=== PATIENT | female | born 1930 | race Caucasian/White ===

== ENCOUNTER 2017-01-01 01:07 | Emergency (ER) | payer MEDICARE, BC ==
[2017-01-01] MEDS ORDERED: ONDANSETRON 4 MG/2 ML VIAL IVP STA (01:26)
--- NOTE | 2017-01-01 01:52 | ED ---
Abdominal Pain HPI - General Chief Complaint: Abdominal Pain Stated Complaint: nausea Time Seen by Provider: 01/01/17 01:25 Source: patient, family Mode of arrival: wheelchair Limitations: no limitations - History of Present Illness Initial Comments: this patient is an 86-year-old woman accompanied by her daughter who complains of having nausea and vomiting. The patient states that the symptoms started around 2220, and occurred while she was lying down in bed. Patient states that she started feeling intensely nauseated and then had about 5 or 6 episodes of vomiting. She also was feeling chills at that time. She states that she has not had abdominal pain. She does not have any change in bowel movements. She has had no change in urination. She denies other symptoms. MD Complaint: other (nausea and vomiting.) Onset/Timin -: hour(s) Associated Symptoms: nausea, vomiting, chills - Related Data Home Medications Medication Instructions Recorded Confirmed Aspirin 81 mg PO DAILY 01/01/17 01/01/17 Darbepoetin Hever [Aranesp] 200 mcg IJ PRN 01/01/17 Doxazosin [Cardura] 2 mg PO DAILY 01/01/17 01/01/17 Metoprolol Succinate [Toprol XL] 200 mg PO DAILY 01/01/17 01/01/17 Omeprazole Magnesium [Prilosec OTC] 20 mg PO 01/01/17 Polyethylene Glycol 3350 [Miralax] pack PO PRN 01/01/17 Ubidecarenone [Co Q-10] 100 mg PO DAILY 01/01/17 01/01/17 amLODIPine [Norvasc] 5 mg PO HS 01/01/17 01/01/17 Previous Rx's Medication Instructions Recorded Ondansetron Odt [Zofran ODT] 4 mg PO Q8HR PRN #10 tab 01/01/17 Allergies Allergy/AdvReac Type Severity Reaction Status Date / Time iodine Allergy Anaphylaxis Verified 01/01/17 01:13 scopolamine Allergy Hallucinati Verified 01/01/17 01:13 ons Review of Systems ROS Statement: Those systems with pertinent positive or pertinent negative responses have been documented in the HPI. ROS Other: All systems not noted in ROS Statement are negative. Constitutional: Reports: chills. Denies: fever, weakness Respiratory: Denies: cough, dyspnea Cardiovascular: Denies: chest pain, orthopnea, edema, syncope Gastrointestinal: Reports: nausea, vomiting. Denies: abdominal pain, diarrhea, constipation, hematemesis Genitourinary: Denies: dysuria, hematuria Musculoskeletal: Denies: back pain Skin: Denies: rash Neurological: Denies: headache Past Medical History Past Medical History: Hypertension Additional Past Medical History / Comment(s): heart mumur. left hip fracture. History of Any Multi-Drug Resistant Organisms: None Reported Past Surgical History: Appendectomy, Hysterectomy, Tonsillectomy Additional Past Surgical History / Comment(s): bilateral mastectomy. fractured left kneecap. Past Psychological History: No Psychological Hx Reported Smoking Status: Former smoker Past Alcohol Use History: None Reported Past Drug Use History: None Reported General Exam Limitations: no limitations General appearance: alert, in no apparent distress Head exam: Present: atraumatic, normocephalic Eye exam: Present: normal appearance. Absent: scleral icterus, conjunctival injection ENT exam: Present: mucous membranes dry Neck exam: Present: normal inspection Respiratory exam: Present: normal lung sounds bilaterally. Absent: respiratory distress, wheezes, rales, rhonchi, stridor Cardiovascular Exam: Present: regular rate, normal rhythm, systolic murmur ( grade 3/6), diastolic murmur. Absent: normal heart sounds, rubs, gallop GI/Abdominal exam: Present: soft. Absent: distended, tenderness, guarding, rebound, rigid, mass, pulsatile mass Extremities exam: Present: normal inspection, normal capillary refill. Absent: pedal edema, calf tenderness Back exam: Present: normal inspection. Absent: CVA tenderness (R), CVA tenderness (L) Neurological exam: Present: alert Skin exam: Present: warm, dry, intact, normal color. Absent: rash Course Vital Signs 01/01/17 01/01/17 01/01/17 01:09 02:06 03:00 Temperature 100.7 F H 100.4 F H Pulse Rate 80 80 77 Respiratory 24 18 18 Rate Blood Pressure 199/84 168/86 147/70 O2 Sat by Pulse 96 98 Oximetry Medical Decision Making - Medical Decision Making I reviewed the study results with the patient and her daughter. They state that the issue related to anemia and blood counts is chronic, and that she always runs just at or slightly below 10. The patient states that her symptoms have resolved and she wants to go home. Discussed appropriate follow-up and also return parameters. All questions answered. - Lab Data Result diagrams: 01/01/17 01:53 01/01/17 01:53 Lab Results 01/01/17 01/01/17 01/01/17 Range/Units 01:53 01:53 03:28 WBC 3.3 L (3.8-10.6) k/uL RBC 3.46 L (3.80-5.40) m/uL Hgb 9.7 L (11.4-16.0) gm/dL Hct 32.1 L (34.0-46.0) % MCV 92.6 (80.0-100.0) fL MCH 27.9 (25.0-35.0) pg MCHC 30.1 L (31.0-37.0) g/dL RDW 24.5 H (11.5-15.5) % Plt Count 276 (150-450) k/uL Neutrophils % (Manual) 76 % Band Neutrophils % 4 % Lymphocytes % (Manual) 6 % Monocytes % (Manual) 14 % Neutrophils # (Manual) 2.60 (1.3-7.7) k/uL Lymphocytes # (Manual) 0.20 L (1.0-4.8) k/uL Monocytes # (Manual) 0.46 (0-1.0) k/uL Nucleated RBCs 2 H (0-0) /100 WBC Manual Slide Review Performed Large Platelets Present Hypochromasia Moderate Anisocytosis Marked Microcytosis Slight Macrocytosis Slight Fragmented RBCs Present Sodium 135 L (137-145) mmol/L Potassium 4.4 (3.5-5.1) mmol/L Chloride 101 (98-107) mmol/L Carbon Dioxide 25 (22-30) mmol/L Anion Gap 9 mmol/L BUN 17 (7-17) mg/dL Creatinine 0.80 (0.52-1.04) mg/dL Est GFR (MDRD) Af Amer >60 (>60 ml/min/1.73 sqM) Est GFR (MDRD) Non-Af >60 (>60 ml/min/1.73 sqM) Glucose 121 H (74-99) mg/dL Calcium 9.1 (8.4-10.2) mg/dL Total Bilirubin 0.9 (0.2-1.3) mg/dL AST 25 (14-36) U/L ALT 41 (9-52) U/L Alkaline Phosphatase 95 (38-126) U/L Total Protein 6.6 (6.3-8.2) g/dL Albumin 3.7 (3.5-5.0) g/dL Amylase 45 (30-110) U/L Lipase 119 (23-300) U/L Urine Color Yellow Urine Appearance Clear (Clear) Urine pH 6.0 (5.0-8.0) Ur Specific Aston 1.013 (1.001-1.035) Urine Protein Trace H (Negative) Urine Glucose (UA) Negative (Negative) Urine Ketones Negative (Negative) Urine Blood Negative (Negative) Urine Nitrite Negative (Negative) Urine Bilirubin Negative (Negative) Urine Urobilinogen <2.0 (<2.0) mg/dL Ur Leukocyte Esterase Negative (Negative) Disposition Clinical Impression: Vomiting alone, Anemia Disposition: HOME SELF-CARE Condition: Good Instructions: Acute Nausea and Vomiting (ED) Prescriptions: Ondansetron Odt [Zofran ODT] 4 mg PO Q8HR PRN #10 tab PRN Reason: Nausea Referrals: Nonstaff,Physician [REFERRING] - 1-2 days
[2017-01-01 02:08] VITALS: RESP 18
[2017-01-01] MEDS ORDERED: ACETAMINOPHEN TAB 325 MG TAB PO STA (02:09)
[2017-01-01 02:34] LABS: ALT 41 U/L (9-52); AST 25 U/L (14-36); Alkaline Phosphatase 95 U/L (38-126); Amylase 45 U/L (30-110); Anion Gap 9 mmol/L; Blood Urea Nitrogen 17 mg/dL (7-17); Calcium 9.1 mg/dL (8.4-10.2); Carbon Dioxide 25 mmol/L (22-30); Chloride 101 mmol/L (98-107); Glucose 121 mg/dL (74-99); Non-African American GFR(MDRD) >60 (>60 ml/min/1.73 sqM); Potassium 4.4 mmol/L (3.5-5.1); Sodium 135 mmol/L (137-145); Total Bilirubin 0.9 mg/dL (0.2-1.3); Total Protein 6.6 g/dL (6.3-8.2)
[2017-01-01 02:37] LABS: Anisocytosis Marked; CHCM 31.1; HCT 32.1 % (34.0-46.0); HDW 3.33; HGB 9.7 gm/dL (11.4-16.0); Hypochromasia Moderate; Immature Gran Flag Slight; Large Platelets Flag Marked; MCH 27.9 pg (25.0-35.0); MCHC 30.1 g/dL (31.0-37.0); MCV 92.6 fL (80.0-100.0); Macrocytosis Slight; Mean Platelet Volume 11.6; Microcytosis Slight; RBC 3.46 m/uL (3.80-5.40); RDW 24.5 % (11.5-15.5); WBC (Perox) 4.43
[2017-01-01 02:51] LABS: Add Differential Manual Differential
[2017-01-01 02:55] LABS: Band Neutrophils % 4 %; Large Platelets Present; Manual Review Performed; Nucleated Red Blood Cells 2 /100 WBC (0-0); Total Cells Counted 200; WBC 3.3 k/uL (3.8-10.6)
[2017-01-01 03:35] LABS: Appearance,Urine Clear (Clear); Bilirubin,Urine Negative (Negative); Glucose,Urine (UA) Negative (Negative); Ketones,Urine Negative (Negative); Leukocyte Esterase,Urine Negative (Negative); Nitrite,Urine Negative (Negative); Protein,Urine Trace (Negative); Specific Gravity,Urine 1.013 (1.001-1.035); UA Billing (MACRO vs. MICRO) CHEM; Urobilinogen,Urine <2.0 mg/dL (<2.0)
[2017-01-01 04:49] VITALS: BP 132/66; PULSE 68; TEMP 99.5
== END 2017-01-01 04:48 | disposition home or self-care (01) ==
LOC: EC 01:07
DX: R11.10 Vomiting, unspecified (principal); D64.9 Anemia, unspecified; I10 Essential (primary) hypertension; Z87.891 Personal history of nicotine dependence; Z90.49 Acquired absence of other specified parts of digestive tract; Z91.048 Other nonmedicinal substance allergy status; Z91.018 Allergy to other foods; Z79.82 Long term (current) use of aspirin; Z79.899 Other long term (current) drug therapy
CPT/HCPCS: 36415; 80053; 82150; 83690; 85025; 81003; 99284; 96374; J2405

== ENCOUNTER 2017-01-01 21:51 | Inpatient (IN) | payer MEDICARE, BC ==
[2017-01-01] MEDS ORDERED: SODIUM CHLORIDE 0.9% 1,000 ML IV STA (22:12)
[2017-01-01] MEDS ORDERED: MORPHINE SULFATE 10 MG/ML SYRINGE IV STA (22:12)
[2017-01-01] MEDS ORDERED: ONDANSETRON 4 MG/2 ML VIAL IVP STA (22:12)
--- NOTE | 2017-01-01 22:19 | ED ---
General Adult HPI - General Chief complaint: Abdominal Pain Stated complaint: Vomiting/Body Ache Time Seen by Provider: 01/01/17 22:04 Source: patient, family, RN notes reviewed Mode of arrival: ambulatory Limitations: no limitations - History of Present Illness Initial comments: 86-year-old female presents for evaluation of abdominal pain nausea vomiting diarrhea. Patient was seen in the emergency department earlier today with chief complaint of nausea vomiting and constipation. Patient was feeling much better at the time of discharge. She went home, slept most of the day. Earlier this evening she was having difficulty having a bowel movement, she was given 2 glycerin suppositories, at that time she had several large hard bowel movements followed by intense abdominal pain and 10 episodes of nausea and vomiting. Patient is in severe pain at the time my evaluation. She states the pain is all over her abdomen. She is unable to localize it. 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 Patient also complains of subjective fever and chills. No chest pain or shortness of breath. - Related Data Home Medications Medication Instructions Recorded Confirmed Aspirin 81 mg PO QAM 01/01/17 01/01/17 Cholecalciferol [Vitamin D3] 1,000 unit PO QAM 01/01/17 01/01/17 Co Q-10 50 mg PO QAM 01/01/17 01/01/17 Darbepoetin Hever [Aranesp] 200 mcg IJ Q14D PRN 01/01/17 01/01/17 Doxazosin [Cardura] 2 mg PO HS 01/01/17 01/01/17 Metoprolol Succinate [Toprol XL] 200 mg PO QAM 01/01/17 01/01/17 Omeprazole Magnesium [Prilosec OTC] 20 mg PO QAM 01/01/17 01/01/17 Polyethylene Glycol 3350 [Miralax] 17 gm PO DAILY PRN 01/01/17 01/01/17 amLODIPine [Norvasc] 5 mg PO HS 01/01/17 01/01/17 Allergies Allergy/AdvReac Type Severity Reaction Status Date / Time iodine Allergy Anaphylaxis Verified 01/01/17 23:00 scopolamine Allergy Hallucinati Verified 01/01/17 23:00 ons Review of Systems ROS Statement: Those systems with pertinent positive or pertinent negative responses have been documented in the HPI. ROS Other: All systems not noted in ROS Statement are negative. Past Medical History Past Medical History: Hypertension Additional Past Medical History / Comment(s): heart mumur. left hip fracture. History of Any Multi-Drug Resistant Organisms: None Reported Past Surgical History: Appendectomy, Hysterectomy, Tonsillectomy Additional Past Surgical History / Comment(s): bilateral mastectomy. fractured left kneecap. Past Psychological History: No Psychological Hx Reported Smoking Status: Former smoker Past Alcohol Use History: None Reported Past Drug Use History: None Reported General Exam Limitations: no limitations General appearance: alert, in distress Head exam: Present: atraumatic, normocephalic Eye exam: Present: normal appearance, PERRL ENT exam: Present: mucous membranes dry Neck exam: Present: normal inspection. Absent: tenderness, meningismus Respiratory exam: Present: normal lung sounds bilaterally. Absent: respiratory distress Cardiovascular Exam: Present: regular rate, normal rhythm GI/Abdominal exam: Present: soft, tenderness (Minimal tenderness throughout the abdomen). Absent: distended, guarding, rebound Rectal exam: Present: normal inspection, normal rectal tone. Absent: fecal impaction Extremities exam: Present: normal inspection, normal capillary refill, other ( Bilateral femoral pulses 2+). Absent: pedal edema Neurological exam: Present: alert, oriented X3. Absent: motor sensory deficit Psychiatric exam: Present: normal affect, normal mood Skin exam: Present: warm, dry. Absent: intact, cyanosis, diaphoretic Course Vital Signs 01/01/17 01/01/17 21:56 23:25 Temperature 97 F L Pulse Rate 67 78 Respiratory 24 18 Rate Blood Pressure 224/93 185/79 O2 Sat by Pulse 97 99 Oximetry EKG Findings - EKG Comments: EKG Findings:: EKG shows normal sinus rhythm, right bundle branch block, ventricular rate 74, MS interval 184, QRS duration 148, QTC 521 Medical Decision Making - Medical Decision Making 86-year-old female presenting with abdominal pain, nausea vomiting and diarrhea. Laboratory studies are obtained, there is leukopenia with a white blood cell count 1.9, this may be secondary to infection. Hemoglobin stable at 10.1. Creatinine 1.0 which is normal. Troponin is negative. Electrolytes within normal limits. X-ray abdomen is obtained, shows no acute intra- abdominal process, no obstruction, no free air. Patient does have significant pain, there is only minimal tenderness, there is concern for mesenteric ischemia , CT angiography of the abdomen and pelvis is obtained, this is negative for occlusion or significant stenosis, also no additional intra-abdominal process to explain the patient's symptoms. I reevaluation, patient does have continued abdominal pain, she is given additional dose of IV pain medication. She will be admitted for further pain control and reevaluation. Diagnosis: Intractable abdominal pain, nausea vomiting diarrhea - Lab Data Result diagrams: 01/01/17 22:49 01/01/17 22:49 Lab Results 01/01/17 01/01/17 01/01/17 Range/Units 22:49 22:49 22:49 WBC 1.9 L* (3.8-10.6) k/uL RBC 3.65 L (3.80-5.40) m/uL Hgb 10.1 L (11.4-16.0) gm/dL Hct 33.6 L (34.0-46.0) % MCV 92.1 (80.0-100.0) fL MCH 27.6 (25.0-35.0) pg MCHC 30.0 L (31.0-37.0) g/dL RDW 24.6 H (11.5-15.5) % Plt Count 287 (150-450) k/uL Neutrophils % (Manual) 28 % Band Neutrophils % 16 % Lymphocytes % (Manual) 35 % Monocytes % (Manual) 22 % Neutrophils # (Manual) 0.80 L (1.3-7.7) k/uL Lymphocytes # (Manual) 0.67 L (1.0-4.8) k/uL Monocytes # (Manual) 0.42 (0-1.0) k/uL Nucleated RBCs 0 (0-0) /100 WBC Manual Slide Review Performed Polychromasia Present Hypochromasia Moderate Poikilocytosis Slight Anisocytosis Marked Microcytosis Slight Macrocytosis Slight Ovalocytes Present Fragmented RBCs Present APTT (22.0-30.0) sec Sodium 136 L (137-145) mmol/L Potassium 4.4 (3.5-5.1) mmol/L Chloride 100 (98-107) mmol/L Carbon Dioxide 26 (22-30) mmol/L Anion Gap 10 mmol/L BUN 21 H (7-17) mg/dL Creatinine 1.00 (0.52-1.04) mg/dL Est GFR (MDRD) Af Amer >60 (>60 ml/min/1.73 sqM) Est GFR (MDRD) Non-Af 52 (>60 ml/min/1.73 sqM) Glucose 136 H (74-99) mg/dL Plasma Lactic Acid Farzad (0.7-2.0) mmol/L Calcium 9.2 (8.4-10.2) mg/dL Total Bilirubin 1.3 (0.2-1.3) mg/dL AST 30 (14-36) U/L ALT 45 (9-52) U/L Alkaline Phosphatase 148 H (38-126) U/L Total Creatine Kinase 30 (30-135) U/L CK-MB (CK-2) 0.8 (0.0-2.4) ng/mL CK-MB (CK-2) Rel Index 2.7 Troponin I (0.000-0.034) ng/mL Total Protein 6.8 (6.3-8.2) g/dL Albumin 3.8 (3.5-5.0) g/dL Amylase 183 H (30-110) U/L Lipase 123 (23-300) U/L Blood Type Blood Type Recheck Antibody Screen Spec Expiration Date 01/01/17 01/01/17 01/01/17 Range/Units 22:49 22:49 22:49 WBC (3.8-10.6) k/uL RBC (3.80-5.40) m/uL Hgb (11.4-16.0) gm/dL Hct (34.0-46.0) % MCV (80.0-100.0) fL MCH (25.0-35.0) pg MCHC (31.0-37.0) g/dL RDW (11.5-15.5) % Plt Count (150-450) k/uL Neutrophils % (Manual) % Band Neutrophils % % Lymphocytes % (Manual) % Monocytes % (Manual) % Neutrophils # (Manual) (1.3-7.7) k/uL Lymphocytes # (Manual) (1.0-4.8) k/uL Monocytes # (Manual) (0-1.0) k/uL Nucleated RBCs (0-0) /100 WBC Manual Slide Review Polychromasia Hypochromasia Poikilocytosis Anisocytosis Microcytosis Macrocytosis Ovalocytes Fragmented RBCs APTT 21.5 L (22.0-30.0) sec Sodium (137-145) mmol/L Potassium (3.5-5.1) mmol/L Chloride (98-107) mmol/L Carbon Dioxide (22-30) mmol/L Anion Gap mmol/L BUN (7-17) mg/dL Creatinine (0.52-1.04) mg/dL Est GFR (MDRD) Af Amer (>60 ml/min/1.73 sqM) Est GFR (MDRD) Non-Af (>60 ml/min/1.73 sqM) Glucose (74-99) mg/dL Plasma Lactic Acid Farzad 1.8 (0.7-2.0) mmol/L Calcium (8.4-10.2) mg/dL Total Bilirubin (0.2-1.3) mg/dL AST (14-36) U/L ALT (9-52) U/L Alkaline Phosphatase (38-126) U/L Total Creatine Kinase (30-135) U/L CK-MB (CK-2) (0.0-2.4) ng/mL CK-MB (CK-2) Rel Index Troponin I (0.000-0.034) ng/mL Total Protein (6.3-8.2) g/dL Albumin (3.5-5.0) g/dL Amylase (30-110) U/L Lipase (23-300) U/L Blood Type A Positive Blood Type Recheck CABO Indicated Antibody Screen NEGATIVE Spec Expiration Date 01/04/2017234801/01/17 Range/Units 22:59 WBC (3.8-10.6) k/uL RBC (3.80-5.40) m/uL Hgb (11.4-16.0) gm/dL Hct (34.0-46.0) % MCV (80.0-100.0) fL MCH (25.0-35.0) pg MCHC (31.0-37.0) g/dL RDW (11.5-15.5) % Plt Count (150-450) k/uL Neutrophils % (Manual) % Band Neutrophils % % Lymphocytes % (Manual) % Monocytes % (Manual) % Neutrophils # (Manual) (1.3-7.7) k/uL Lymphocytes # (Manual) (1.0-4.8) k/uL Monocytes # (Manual) (0-1.0) k/uL Nucleated RBCs (0-0) /100 WBC Manual Slide Review Polychromasia Hypochromasia Poikilocytosis Anisocytosis Microcytosis Macrocytosis Ovalocytes Fragmented RBCs APTT (22.0-30.0) sec Sodium (137-145) mmol/L Potassium (3.5-5.1) mmol/L Chloride (98-107) mmol/L Carbon Dioxide (22-30) mmol/L Anion Gap mmol/L BUN (7-17) mg/dL Creatinine (0.52-1.04) mg/dL Est GFR (MDRD) Af Amer (>60 ml/min/1.73 sqM) Est GFR (MDRD) Non-Af (>60 ml/min/1.73 sqM) Glucose (74-99) mg/dL Plasma Lactic Acid Farzad (0.7-2.0) mmol/L Calcium (8.4-10.2) mg/dL Total Bilirubin (0.2-1.3) mg/dL AST (14-36) U/L ALT (9-52) U/L Alkaline Phosphatase (38-126) U/L Total Creatine Kinase (30-135) U/L CK-MB (CK-2) (0.0-2.4) ng/mL CK-MB (CK-2) Rel Index Troponin I <0.012 (0.000-0.034) ng/mL Total Protein (6.3-8.2) g/dL Albumin (3.5-5.0) g/dL Amylase (30-110) U/L Lipase (23-300) U/L Blood Type Blood Type Recheck Antibody Screen Spec Expiration Date Disposition Clinical Impression: Intractable abdominal pain, Nausea vomiting and diarrhea Disposition: ADMITTED IP TO THIS [facility] Condition: Stable Referrals: Nonstaff,Physician [Primary Care Provider] - 1-2 days Decision to Admit Reason: Admit from EC Decision Date: 01/02/17 Decision Time: 01:05
[2017-01-01 23:03] LABS: Anisocytosis Marked; Aty Lym Flag Moderate; CH 28.8; CHCM 31.1; HCT 33.6 % (34.0-46.0); HGB 10.1 gm/dL (11.4-16.0); Hypochromasia Moderate; Immature Gran Flag Moderate; Large Platelets Flag Moderate; MCH 27.6 pg (25.0-35.0); MCV 92.1 fL (80.0-100.0); Macrocytosis Slight; Mean Platelet Volume 11.3; Microcytosis Slight; Poikilocytosis Slight; RBC 3.65 m/uL (3.80-5.40); RDW 24.6 % (11.5-15.5)
[2017-01-01 23:05] LABS: WBC 1.9 k/uL (3.8-10.6)
[2017-01-01 23:06] LABS: ALT 45 U/L (9-52); AST 30 U/L (14-36); Alkaline Phosphatase 148 U/L (38-126); Amylase 183 U/L (30-110); Anion Gap 10 mmol/L; Blood Urea Nitrogen 21 mg/dL (7-17); Calcium 9.2 mg/dL (8.4-10.2); Carbon Dioxide 26 mmol/L (22-30); Chloride 100 mmol/L (98-107); Glucose 136 mg/dL (74-99); Non-African American GFR(MDRD) 52 (>60 ml/min/1.73 sqM); Potassium 4.4 mmol/L (3.5-5.1); Sodium 136 mmol/L (137-145); Total Bilirubin 1.3 mg/dL (0.2-1.3); Total Protein 6.8 g/dL (6.3-8.2)
--- NOTE | 2017-01-01 23:11 | XR ---
EXAMINATION TYPE: XR KUB DATE OF EXAM: 01/01/2017 COMPARISON: NONE HISTORY: Abdominal pain TECHNIQUE: Single view FINDINGS: There is no sign of intestinal obstruction or pneumoperitoneum. Fecal pattern is normal. Th ere is vascular calcification. There is a right hip nailing. There is no sign of a mass. IMPRESSION: Nonacute abdomen.
[2017-01-01 23:18] LABS: Add Differential Manual Differential
[2017-01-01] MEDS ORDERED: MORPHINE SULFATE 10 MG/ML SYRINGE IVP STA (23:25)
[2017-01-01] MEDS ORDERED: RX INFO: IV CONTRAST WAS GIVEN 1 EACH MISC MISCELLANE PRN (23:25)
[2017-01-01 23:26] LABS: Creatine Kinase MB 0.8 ng/mL (0.0-2.4)
[2017-01-01 23:29] LABS: Band Neutrophils % 16 %; Manual Review Performed; Nucleated Red Blood Cells 0 /100 WBC (0-0); Ovalocytes Present; Total Cells Counted 200
[2017-01-01 23:30] LABS: Polychromasia Present
[2017-01-01] MEDS ORDERED: methylPREDNISolone SOD SUCCI 125 MG/2 ML VIAL IV STA (23:34)
[2017-01-01] MEDS ORDERED: diphenhydrAMINE 50 MG/ML 1 ML VIAL IVP STA (23:34)
[2017-01-01] MEDS ORDERED: FAMOTIDINE 20 MG/2 ML VIAL IV STA (23:34)
[2017-01-01] MEDS ORDERED: SODIUM CHLORIDE 0.9% 500 ML IV ONE (23:40)
--- NOTE | 2017-01-02 00:28 | CT ---
EXAMINATION TYPE: CT angio abdomen pelvis DATE OF EXAM: 01/02/2017 HISTORY: ABD PAIN CT DLP: 652.20mGycm Automated Exposure Control for Dose Reduction was Utilized. CONTRAST: CT scan of the abdomen and pelvis is performed with IV Contrast, patient injected with 80ML mL of Vis ipaque 320. There are 3-D post processed images. COMPARISON: None. FINDINGS: There is patchy linear density at the lung bases. There is mild pleural thickening at the right lung base. Heart is enlarged. Abdominal aorta is atheromatous. There is no evidence of aortic aneurysm or dissection. The lumen is difficult to evaluate because of extensive calcification in the iliac arteri es. There is approximate 50% stenosis at the origin of the celiac artery. There is patency of the sup erior mesenteric artery. There is bilateral renal artery patency. There is high attenuation in the dependent gallbladder consistent with multiple small gallstones. Skyler e ducts are not dilated. There is no hydronephrosis. There is no ascites. There is bilateral arterial flow in the internal and external iliac arteries and the femoral arteries. There is a 1 cm hypodense nonspecific area in the anterior left lobe of the liver. There is patency of the inferior mesenteric artery. There is a tiny amount of free fluid in the cul-de-sac. CONCLUSION: Atherosclerotic vascular disease. I do not see evidence for intestinal ischemia. There is no definite evidence of intestinal wall thickening or intestinal ileus or intestinal wall edema to suggest ische silvina. There is probably up to 50% stenosis of the common iliac arteries due to atherosclerotic plaque. There is fairly symmetric contrast density in the femoral arteries and I do not see evidence for asy mmetric stenosis. Minimal free fluid in the pelvis of uncertain significance.
[2017-01-02] MEDS ORDERED: MORPHINE SULFATE 10 MG/ML SYRINGE IV PRN (00:59)
[2017-01-02] MEDS ORDERED: NALOXONE 0.4 MG/ML 1 ML VIAL IV PRN (00:59)
[2017-01-02] MEDS ORDERED: ACETAMINOPHEN TAB 325 MG TAB PO PRN (00:59)
[2017-01-02] MEDS ORDERED: DOCUSATE 100 MG CAP PO PRN (00:59)
[2017-01-02] MEDS ORDERED: POLYETHYLENE GLYCOL 3350 17 GM POWD.PACK PO PRN (01:01)
[2017-01-02] MEDS ORDERED: amLODIPine 5 MG TAB PO STA (01:35)
[2017-01-02] MEDS ORDERED: ASPIRIN 81 MG PO SCH (09:00)
[2017-01-02] MEDS: FAMOTIDINE 20 MG TAB PO SCH ×2 (09:19→21:23)
[2017-01-02] MEDS: PANTOPRAZOLE 40 MG TABLET PO SCH (09:19)
[2017-01-02] MEDS: METOPROLOL SUCCINATE (ER) 100 MG TAB.ER.24H PO SCH (09:19)
[2017-01-02 14:40] LABS: Appearance,Urine Clear (Clear); Bilirubin,Urine Negative (Negative); Glucose,Urine (UA) Negative (Negative); Ketones,Urine Negative (Negative); Leukocyte Esterase,Urine Negative (Negative); Mucus,Urine Rare /hpf; Nitrite,Urine Negative (Negative); PH, Urine 5.5 (5.0-8.0); Particle Count 2454; Protein,Urine 1+ (Negative); RBC,Urine <1 /hpf (0-5); Specific Gravity,Urine 1.038 (1.001-1.035); Squamous Epithelial Cell,Urine 1 /hpf (0-4); UA Billing (MACRO vs. MICRO) MICRO; Urobilinogen,Urine <2.0 mg/dL (<2.0); WBC,Urine 1 /hpf (0-5)
--- NOTE | 2017-01-02 17:32 | HP ---
HISTORY AND PHYSICAL CHIEF COMPLAINTS: Abdominal pain history and nausea, vomiting. HISTORY OF PRESENT ILLNESS: This 86-year-old woman with a past medical history of multiple medical problems, including hypertension, history of heart murmur, being followed by a primary physician in the [place] area is complaining of constipation, abdominal pain. Patient came to the ER. Patient received multiple medications. Patient went home and subsequently patient had recurrence of abdominal pain which was diffusely located. The patient also had a bowel movement after that. Subsequently, the patient also had some vomiting and the patient came to [facility], admitted for further evaluation and treatment. There is no history of fever, rigors. No headache,loss of conscious or seizures. PAST MEDICAL HISTORY: Hypertension, history of heart murmur, appendectomy, hysterectomy. MEDICATIONS PRIOR TO ADMISSION: Include home medications are: 1. Vitamin D 3000 q.a.m. 2. Aspirin 81 mg t.i.d. 3. MiraLAX 17 g daily p.r.n. 4. Prilosec OTC 20 mg p.o. q.h.s. 5. Toprol-XL 200 mg q.a.m. 6. Cardura 2 mg q.h.s. 8. Coenzyme-Q 50 mg daily. 9. Norvasc 5 mg q.h.s. ALLERGIES: IODINE AND SCOPOLAMINE. FAMILY HISTORY: History of cancer in the family. SOCIAL HISTORY: Previous history of smoking. No history of current smoking or alcohol intake. REVIEW OF SYSTEMS: ENT: Diminished hearing. Diminished vision. CARDIOVASCULAR: No angina. RESPIRATORY: No cough, hemoptysis. GI: As mentioned earlier. : No dysuria. NERVOUS: No numbness or weakness: ALLERGY/IMMUNOLOGY: No asthma or hay fever. MUSCULOSKELETAL: As mentioned earlier. HEMATOLOGY/ONCOLOGY: No history of anemia. ENDOCRINE: No history of diabetes, hypothyroidism. CONSTITUTIONAL: As mentioned earlier. DERMATOLOGY: Negative. RHEUMATOLOGY: Negative. PSYCHIATRY: As mentioned earlier. PHYSICAL EXAMINATION: Alert and oriented x3. Pulse 74, blood pressure 134/45, respirations 16, temperature 97.8, pulse ox 100% on 2L. HEENT: Conjunctivae normal. Oral mucosa moist. NECK: No jugular venous distention. No carotid bruits. No lymph node enlargement. No thyroid enlargement. CARDIOVASCULAR: S1, S2 muffled. No S3. No S4. RESPIRATORY: Breath sounds diminished in the bases. No rhonchi. No crackles. ABDOMEN: Soft. Mild diffuse distention. Mild diffuse tenderness present. No mass palpable. LEGS: No edema. No swelling. NERVOUS SYSTEM: Higher functions as mentioned earlier. Moves all 4 limbs. No focal motor or sensory deficits. LYMPHATIC: No lymphadenopathy in neck, axillae or groins. SKIN: No ulcer, rash or bleeding. LABS: WBC 1.8, hemoglobin is 10.1, platelets are normal. Sodium 135. ASSESSMENT: 1. Acute diffuse abdominal pain, nausea, vomiting possibly secondary from constipation. 2. Leukopenia of undetermined etiology. 3. Anemia, normocytic. 4. History of hypertension. 5. History of heart murmur. 6. History of degenerative joint disease, left hip fracture. 7. History of tonsillectomy. RECOMMENDATIONS AND DISCUSSION: In this 86-year-old woman who presented with multiple complex medical issues, we will monitor the patient closely. Continue the current medical management and symptomatic treatment. I would hold aspirin at this time, repeat labs. The exact etiology of the neutropenia is unknown at this time. Otherwise, we will continue to monitor. Continue the rest of the medications. The overall prognosis is guarded because of multiple complex medical issues. Home medications consultation also was done and further recommendations to follow. See orders for further details. MMODL / IJN: [id number] / HARRIET
[2017-01-02] MEDS ORDERED: DOXAZOSIN 2 MG TAB PO SCH (21:00)
[2017-01-02] MEDS ORDERED: amLODIPine 5 MG TAB PO SCH (21:00)
[2017-01-02] MEDS: HEPARIN SODIUM,PORCINE 5,000 UNIT/ML 1 ML VIAL SQ SCH (21:24)
[2017-01-03 02:35] VITALS: RESP 16
[2017-01-03 07:30] LABS: Anisocytosis Marked; Aty Lym Flag Slight; CH 27.9; CHCM 29.5; HCT 29.2 % (34.0-46.0); HDW 3.07; HGB 8.7 gm/dL (11.4-16.0); Hypochromasia Marked; Large Platelets Flag Moderate; MCH 28.2 pg (25.0-35.0); MCHC 29.8 g/dL (31.0-37.0); MCV 94.5 fL (80.0-100.0); Macrocytosis Moderate; Mean Platelet Volume 11.9; Microcytosis Slight; RBC 3.09 m/uL (3.80-5.40); WBC 4.7 k/uL (3.8-10.6)
[2017-01-03 07:40] LABS: ALT 38 U/L (9-52); AST 24 U/L (14-36); Alkaline Phosphatase 86 U/L (38-126); Anion Gap 7 mmol/L; Blood Urea Nitrogen 17 mg/dL (7-17); Calcium 8.2 mg/dL (8.4-10.2); Carbon Dioxide 24 mmol/L (22-30); Chloride 105 mmol/L (98-107); Glucose 79 mg/dL (74-99); Magnesium 1.8 mg/dL (1.6-2.3); Non-African American GFR(MDRD) >60 (>60 ml/min/1.73 sqM); Potassium 4.3 mmol/L (3.5-5.1); RDW 27.1 % (11.5-15.5); Sodium 136 mmol/L (137-145); Total Bilirubin 0.6 mg/dL (0.2-1.3); Total Protein 5.7 g/dL (6.3-8.2)
[2017-01-03 08:29] VITALS: BP 164/58; PULSE 71; TEMP 97.3
[2017-01-03] MEDS: FAMOTIDINE 20 MG TAB PO SCH (08:36)
[2017-01-03] MEDS: PANTOPRAZOLE 40 MG TABLET PO SCH (08:37)
[2017-01-03] MEDS: METOPROLOL SUCCINATE (ER) 100 MG TAB.ER.24H PO SCH (08:37)
[2017-01-03 08:59] LABS: Add Differential Manual Differential
[2017-01-03 09:03] LABS: Band Neutrophils % 9 %; Manual Review Performed; Metamyelocytes % 1 %; Nucleated Red Blood Cells 0 /100 WBC (0-0); Total Cells Counted 200
[2017-01-03 09:04] LABS: Ovalocytes Present; Polychromasia Present
[2017-01-03 09:05] LABS: Target Cells Present
[2017-01-03] MEDS: HEPARIN SODIUM,PORCINE 5,000 UNIT/ML 1 ML VIAL SQ SCH (11:29)
[2017-01-03] MEDS ORDERED: CHOLECALCIFEROL 1,000 UNIT TAB PO SCH (12:00)
--- NOTE | 2017-01-03 14:37 | P.DS ---
Providers Date of admission: 01/02/17 01:05 Attending physician: Dusty Medley [facility] This 86-year-old woman with a past medical history multiple medical problems was admitted with acute diffuse abdominal pain. Patient also had constipation. This was treated symptomatically. Improved significantly. Patient is keen on going home. Patient be discharged in a stable condition with guarded prognosis. On exam vitals are stable. Cardio S1 and S2 normal. Abdomen soft nontender. Nervous system no focal deficit. Final diagnosis 1. Acute diffuse abdominal pain nausea vomiting possibly secondary from constipation. 2. Leukopenia of undetermined etiology improved. 3. Anemia normocytic. 4. History of hypertension. 5. Heart murmur. 6. History of DJD and left hip fracture. 7. History of tonsillectomy. Patient Condition at Discharge: Stable Plan - Discharge Summary New Discharge Prescriptions: New Docusate [Colace] 100 mg PO BID PRN #60 cap PRN Reason: Constipation Continue Omeprazole Magnesium [Prilosec OTC] 20 mg PO QAM amLODIPine [Norvasc] 5 mg PO HS Doxazosin [Cardura] 2 mg PO HS Aspirin 81 mg PO QAM Polyethylene Glycol 3350 [Miralax] 17 gm PO DAILY PRN PRN Reason: Constipation Metoprolol Succinate [Toprol XL] 200 mg PO QAM Darbepoetin Hever [Aranesp] 200 mcg IJ Q14D PRN PRN Reason: hgb below 10 Cholecalciferol [Vitamin D3] 1,000 unit PO QAM Co Q-10 50 mg PO QAM Discharge Medication List Aspirin 81 mg PO QAM 01/01/17 [History] Cholecalciferol [Vitamin D3] 1,000 unit PO QAM 01/01/17 [History] Co Q-10 50 mg PO QAM 01/01/17 [History] Darbepoetin Hever [Aranesp] 200 mcg IJ Q14D PRN 01/01/17 [History] Doxazosin [Cardura] 2 mg PO HS 01/01/17 [History] Metoprolol Succinate [Toprol XL] 200 mg PO QAM 01/01/17 [History] Omeprazole Magnesium [Prilosec OTC] 20 mg PO QAM 01/01/17 [History] Polyethylene Glycol 3350 [Miralax] 17 gm PO DAILY PRN 01/01/17 [History] amLODIPine [Norvasc] 5 mg PO HS 01/01/17 [History] Docusate [Colace] 100 mg PO BID PRN #60 cap 01/03/17 [Rx] Follow up Appointment(s)/Referral(s): Nonstaff,Physician [REFERRING] - 1-2 days Activity/Diet/Wound Care/Special Instructions: diet cardiac act limited till f/u Discharge Disposition: HOME SELF-CARE
== END 2017-01-03 12:47 | disposition home or self-care (01) | DRG 392 ==
LOC: EC 21:51 → 3SUR 01-02 01:05
PROVIDERS: ADMIT Hospitalist; ATTEND Hospitalist
DX: K59.00 Constipation, unspecified (principal); D64.9 Anemia, unspecified; I10 Essential (primary) hypertension; D72.819 Decreased white blood cell count, unspecified; Z79.82 Long term (current) use of aspirin; Z79.899 Other long term (current) drug therapy; Z80.9 Family history of malignant neoplasm, unspecified; Z87.891 Personal history of nicotine dependence; R01.1 Cardiac murmur, unspecified; Z88.3 Allergy status to other anti-infective agents; Z88.8 Allergy status to other drugs, medicaments and biological substances
CPT/HCPCS: 36415; 74000; 74174; 80053; 81001; 81003; 82150; 82550; 82553; 83605; 83690; 83735; 84484; 85025; 85730; 86850; 86900; 86901; 87040; 87077; 87086; 87186; 93005; 96361; 96374; 96375; 96376; 99284; 99285